=== PATIENT | female | born 1990 ===

== ENCOUNTER 2022-09-18 14:41 | Outpatient (REF) | payer BC, SELFPAY ==
--- NOTE | 2022-09-18 15:30 | PAPFT_PTH ---
PATIENT: Maggie Theodore LOC: [facility] U#:[id number] AGE/SX: 32/F ROOM: RE09/18/[address]: Too Penny : 1990 BED: DIS: 09/19/2022 SPEC #: [id number] RECD: 09/19/22 17:19 STATUS: ALIYAH REPablo #: [id number] GOVIND: 09/18/22 15:[address]: Too Penny DEPT: [facility] Cytology RECD BY: Melinda Underwood Tissues: 1 - CX/ENDOCX FOR PAP SMEARS Procedures: PAP THIN PREP/[facility] Screening HPV DNA PROBE Comments: [id number]
== END 2022-09-19 14:42 | disposition home or self-care (01) ==
LOC: LBN 14:41
PROVIDERS: Visit Provider Naturopath
DX: Z12.4 Encounter for screening for malignant neoplasm of cervix (principal); Z01.419 Encounter for gynecological examination (general) (routine) without abnormal findings; Z11.51 Encounter for screening for human papillomavirus (HPV)
CPT/HCPCS: 88142; 87624